=== PATIENT | female | born 1985 | race Hispanic/Latino ===

== ENCOUNTER 2021-03-14 19:02 | Observation (INO) | payer SELFPAY ==
[~2021-03-14 19:02] MED LIST: Iopamidol-370 76% 500 ML 1 ML ONE
[2021-03-14] MEDS ORDERED: Ondansetron PF 4 MG/2 ML Vial ONE (19:47)
[2021-03-14 20:02] LABS: #Basophils 0.1 thou/uL (0.0-0.2); #Eosinphils 0.1 thou/uL (0.0-0.7); #Lymphocytes 1.3 thou/uL (1.20-3.40); #Monocytes 0.8 thou/uL (0.11-0.59); #Neutrophils 11.6 thou/uL (1.40-6.50); %Basophils 0.4 % (0.0-1.0); %Eosinophils 0.4 % (0.0-10.0); %Lymphocytes 9.3 % (21.0-51.0); %Monocytes 5.8 % (0.0-10.0); Hemoglobin 13.6 g/dL (12.0-16.0); Mean Corpuscular HGB CONC 35.4 g/dL (32.0-36.0); Mean Corpuscular Hemoglobin 32.9 pg (27.0-31.0); Mean Corpuscular Volume 93.1 fL (78.0-98.0); Mean Platelet Volume 6.4 fL (7.4-10.4); Platelet Count 330 thou/uL (130-400); RBC Distribution Width 11.4 % (11.5-14.5); Red Blood Cell (RBC) Count 4.12 mill/uL (4.20-5.40); White Blood Cell (WBC) Count 13.8 thou/uL (4.8-10.8)
[2021-03-14] MEDS ORDERED: Morphine 4 MG/ML VIAL ONE (20:03)
[2021-03-14 20:07] LABS: BHCG - Serum Negative (NEGATIVE); Pregs Control Background? CLEAR/WHITE (CLR/WHITE); Pregs Control Bar Appear? YES (CONTROL BAR)
[2021-03-14 20:28] LABS: ALT (SGPT) 9 U/L (8-55); AST (SGOT) 12 U/L (5-34); Albumin 4.3 g/dL (3.5-5.0); Alkaline Phosphatase 86 U/L (40-110); Anion Gap 11 mmol/L (10-20); BUN (Urea Nitrogen) 15 mg/dL (7.0-18.7); Bilirubin, Total 1.3 mg/dL (0.2-1.2); Calc. Creatinine Clearance 0 mL/min (70-130); Calcium 9.3 mg/dL (7.8-10.44); Carbon Dioxide 25 mmol/L (22-29); Chloride 103 mmol/L (98-107); Globulin 3.9 g/dL (2.4-3.5); Glucose 108 mg/dL (70-105); Lipase 16 U/L (8-78); Potassium 3.9 mmol/L (3.5-5.1); Protein, Total 8.2 g/dL (6.0-8.3); Sodium 135 mmol/L (136-145)
[2021-03-14 20:45] LABS: Bilirubin Negative (Negative); Blood, Urine Negative (Negative); Clarity Clear (Clear); Glucose, Urine (Dipstick) Normal (Negative); Ketone, Urine Negative (Negative); Leukocyte Negative Leu/uL (Negative); Nitrite Negative (Negative); Protein, Urine (Dipstick) Negative (Neg-Trace); Specific Gravity, Urine 1.019 (1.002-1.036); Urobilinogen Normal mg/dL (Less than 2)
[2021-03-14] MEDS ORDERED: Ketorolac Tromethamine 30 MG/ML VIAL ONE (21:11)
[2021-03-14] MEDS ORDERED: metroNIDAZOLE 500 MG/100 ML BAG ONE (22:55)
[2021-03-15] MEDS ORDERED: Morphine 4 MG/ML VIAL SLOW IVP PRN ×2 (00:37→11:33)
[2021-03-15] MEDS ORDERED: Ondansetron ODT 4 MG TAB SL PRN (00:45)
[2021-03-15] MEDS ORDERED: Ondansetron PF 4 MG/2 ML Vial IVP PRN (00:45)
[2021-03-15] MEDS: Sodium Chloride 0.9% 1,000 ML IV SCH ×4 (01:52→17:59)
[2021-03-15 03:08] VITALS: BMI 26.5
[2021-03-15 05:00] LABS: SARS-CoV-2 NAA Rapid Test Not Detected (NotDetected)
[2021-03-15] MEDS ORDERED: metroNIDAZOLE 500 MG in Premix Bag 1 BAG IVPB SCH (06:00)
[2021-03-15] MEDS ORDERED: FLU VACC QS2021-22(6MOS UP)/PF 60 MCG/0.5 ML SYRINGE IM ONE (09:00)
[2021-03-15] MEDS: Morphine 4 MG/ML VIAL SLOW IVP PRN ×2 (11:46→20:43)
[2021-03-15] MEDS ORDERED: metroNIDAZOLE 500 MG/100 ML BAG ONE (13:16)
[2021-03-15] MEDS ORDERED: Bupivacaine 0.25% HCL 30 ML VIAL ONE ×2 (14:18→14:43)
[2021-03-15] MEDS ORDERED: Lidocaine 1% w/Epinephrine 1:100K 20 ML VIAL ONE ×2 (14:18→14:43)
[2021-03-15] MEDS ORDERED: Fentanyl 100 MCG/2 ML VIAL ONE ×3 (15:52→18:07)
[2021-03-15] MEDS ORDERED: Midazolam HCl 2 mg/2 ml Vial ONE (15:52)
[2021-03-15] MEDS ORDERED: Ketorolac Tromethamine 30 MG/ML VIAL ONE (15:58)
[2021-03-15] MEDS ORDERED: PHENYLEPHRINE-NS 100 MCG/ML 10 ML SYRINGE ONE (15:58)
[2021-03-15] MEDS ORDERED: Lidocaine 1% PF 5 ML VIAL ONE (15:58)
[2021-03-15] MEDS ORDERED: Rocuronium Bromide 10 MG/ML (10ML VIAL) ONE (15:58)
[2021-03-15] MEDS ORDERED: Glycopyrrolate 0.2 MG/ML 5 ML SYRINGE ONE (15:58)
[2021-03-15] MEDS ORDERED: Ondansetron PF 4 MG/2 ML Vial ONE ×2 (15:58→18:06)
[2021-03-15] MEDS ORDERED: PROPOFOL 200 MG/20 ML VIAL ONE (15:58)
[2021-03-15] MEDS ORDERED: Succinylcholine 200 MG/10 ml SYRINGE FS ONE (15:58)
[2021-03-15] MEDS ORDERED: Dexamethasone 20 MG/5 ML VIAL ONE (15:58)
[2021-03-15] MEDS: metroNIDAZOLE 500 MG in Premix Bag 1 BAG IVPB SCH ×2 (17:59→22:00)
[2021-03-16] MEDS: metroNIDAZOLE 500 MG in Premix Bag 1 BAG IVPB SCH (05:26)
[2021-03-16] MEDS: Sodium Chloride 0.9% 1,000 ML IV SCH (05:26)
[2021-03-16 08:07] VITALS: BP 94/58; TEMP 98.4
== END 2021-03-16 09:49 | disposition home or self-care (01) ==
LOC: ERS 19:02 → T4-A 21:28
PROVIDERS: ADMIT Specialist; ATTEND Specialist
PROC: 0DTJ4ZZ Resection of Appendix, Percutaneous Endoscopic Approach (ICD-10-PCS; principal; 2021-03-14)
DX: K35.30 Acute appendicitis with localized peritonitis, without perforation or gangrene (principal); K38.8 Other specified diseases of appendix; Z88.0 Allergy status to penicillin; Z20.822 Contact with and (suspected) exposure to COVID-19
CPT/HCPCS: 36415; 36416; 74177; 80053; 81003; 83690; 84703; 85025; 87086; 88304; 93005; 96374; 96375; 96376; G0378; J1100; J1885; J2250; J2270; J2405; J2704; J3010; J7050; Q9967; S0020; U0002